=== PATIENT | male | born 1980 | race Hispanic/Latino ===

== ENCOUNTER 2016-06-15 18:16 | Emergency (ER) | payer SELFPAY ==
[2016-06-15] MEDS ORDERED: TYLENOL PO ONE (18:28)
--- NOTE | 2016-06-15 19:05 | XRay Report ---
FINAL REPORT PROCEDURE: XR CHEST ROUTINE 2V TECHNIQUE: Two views of the chest are obtained HISTORY: shortness of breath COMPARISON: No prior studies are available for comparison. FINDINGS: Alveolar opacity is seen in the right lower lobe of the lungs that is likely due to pneumonia. The heart is normal in size. No pneumothorax or pleural effusion is seen. IMPRESSION: There is likely right lower lobe pneumonia. Continued x-ray followup to document resolution is recommended.
[2016-06-15 19:17] LABS: Hematocrit 43.5 % (35.5-45.6); Hemoglobin 14.4 gm/dl (11.8-15.2); Mean Corpuscular HGB Conc 33 % (32-34); Mean Corpuscular Hemoglobin 31 pg (28-32); Mean Corpuscular Volume 93 fl (84-94); Platelet Count 256 K/mm3 (140-440); Red Blood Count 4.69 M/mm3 (3.65-5.03); Red Cell Distribution Width 12.8 % (13.2-15.2); White Blood Count 24.8 K/mm3 (4.5-11.0)
[2016-06-15 19:34] LABS: Anion Gap 20 mmol/L; Blood Urea Nitrogen 14 mg/dL (9-20); Calcium 8.9 mg/dL (8.4-10.2); Carbon Dioxide 25 mmol/L (22-30); Chloride 91.4 mmol/L (98-107); Glucose 165 mg/dL (75-100); Potassium 3.7 mmol/L (3.6-5.0); Sodium 133 mmol/L (137-145)
[2016-06-15 19:57] LABS: Basophils % (Manual) 0 % (0.0-1.8); Blastocytes % (Manual) 0 %
[2016-06-15 19:58] LABS: Diff Status Complete; Eosinophils % (Manual) 0 % (0.0-4.3); RBC Morphology Normal; Total Cells Counted Percent 0
[2016-06-15 21:45] VITALS: BP 122/68
--- NOTE | 2016-06-15 22:20 | Emergency Department Report ---
- General Chief Complaint: Upper Respiratory Infection Stated Complaint: COUGHING UP MUCUS/PAIN Time Seen by Provider: 06/15/16 20:45 Source: patient Mode of arrival: Ambulatory Limitations: No Limitations - History of Present Illness Initial Comments: This is a 35-year-old male that presents with cough, body aches, sore throat, shortness of breath, productive sputum production for the past week. Patient stated has recent traveling to [place] but stated has been having these symptoms before traveling. Patient is a positive smoker. Patient denies any numbness or tingling sensation extremities. Patient stated he has wheezing. Patient also states had nausea and vomiting last night. But denies any nausea vomiting this current time. Patient denies stiff neck pain, rhinorrhea. Patient denies taking anything [id number] for symptoms. Patient stated has been treating his fever with Tylenol [id number]. Patient denies any toxic or ill appearance. No signs of distress noted. MD Complaint: cough, sore throat -: Gradual, week(s) (1) Severity: moderate Severity scale (0 -10): 10 Quality: sharp, aching Consistency: constant Improves With: nothing Worsens With: activity (sob increases with activity) Associated Symptoms: fever, chills, cough, shortness of breath, nausea, vomiting. denies: diaphoresis, headache, rhinorrhea, nasal congestion, stiff neck, chest pain, abdominal pain, diarrhea, dysuria, rash, confusion, right sweats, weight loss, epistaxis, hoarseness, ear pain Treatments Prior to Arrival: none - Related Data Previous Rx's Medication Instructions Recorded Last Taken Type ALBUTEROL Inhaler [ProAir HFA 2 puff IH DAILY PRN #1 inhalation 06/15/16 Unknown Rx Inhaler] Doxycycline [Vibramycin CAP] 100 mg PO Q12HR 7 Days 06/15/16 Unknown Rx Levofloxacin [Levaquin TAB] 750 mg PO QDAY 5 Days 06/15/16 Unknown Rx Prednisone [predniSONE (Thomas) ER 40 mg PO QDAY 5 Days 06/15/16 Unknown Rx TAB] Allergies Allergy/AdvReac Type Severity Reaction Status Date / Time No Known Allergies Allergy Unverified 11/13/15 03:36 ED Review of Systems ROS: Stated complaint: COUGHING UP MUCUS/PAIN Other details as noted in HPI Constitutional: denies: chills, fever Eyes: denies: eye pain, eye discharge, vision change ENT: denies: ear pain, throat pain Respiratory: cough, shortness of breath, wheezing (bilateral lower lobes). denies: orthopnea, SOB at rest Cardiovascular: denies: chest pain, palpitations Endocrine: no symptoms reported Gastrointestinal: denies: abdominal pain, nausea, diarrhea Genitourinary: denies: urgency, dysuria Musculoskeletal: denies: back pain, joint swelling, arthralgia Skin: denies: rash, lesions Neurological: denies: headache, weakness, paresthesias Psychiatric: denies: anxiety, depression Hematological/Lymphatic: denies: easy bleeding, easy bruising ED Past Medical Hx - Past Medical History Previous Medical History?: No - Surgical History Past Surgical History?: No - Social History Smoking Status: Current Every Day Smoker Substance Use Type: Alcohol, Marijuana - Medications Home Medications: Home Medications Medication Instructions Recorded Confirmed Last Taken Type ALBUTEROL Inhaler [ProAir HFA 2 puff IH DAILY PRN #1 inhalation 06/15/16 Unknown Rx Inhaler] Doxycycline [Vibramycin CAP] 100 mg PO Q12HR 7 Days 06/15/16 Unknown Rx Levofloxacin [Levaquin TAB] 750 mg PO QDAY 5 Days 06/15/16 Unknown Rx Prednisone [predniSONE (Thomas) ER 40 mg PO QDAY 5 Days 06/15/16 Unknown Rx TAB] ED Physical Exam - General Limitations: No Limitations General appearance: alert, in no apparent distress - Head Head exam: Present: atraumatic, normocephalic - Eye Eye exam: Present: normal appearance, PERRL, EOMI - ENT ENT exam: Present: normal exam, normal orophraynx, mucous membranes moist, TM's normal bilaterally - Neck Neck exam: Present: normal inspection, full ROM. Absent: tenderness - Respiratory Respiratory exam: Present: normal lung sounds bilaterally, wheezes (bilateral lower lobes). Absent: respiratory distress, rales, rhonchi, stridor, chest wall tenderness, accessory muscle use, decreased breath sounds, prolonged expiratory - Expanded Respiratory Exam Expanded Location: Wheezes: Right, Left, Lower - Cardiovascular Cardiovascular Exam: Present: regular rate, normal rhythm. Absent: systolic murmur, diastolic murmur, rubs, gallop - GI/Abdominal GI/Abdominal exam: Present: soft, normal bowel sounds - Rectal Rectal exam: Present: deferred - Extremities Exam Extremities exam: Present: normal inspection, full ROM, normal capillary refill. Absent: tenderness - Back Exam Back exam: Present: normal inspection, full ROM. Absent: tenderness, CVA tenderness (R), CVA tenderness (L) - Neurological Exam Neurological exam: Present: alert, oriented X3, CN II-XII intact, normal gait - Psychiatric Psychiatric exam: Present: normal affect, normal mood - Skin Skin exam: Present: warm, dry, intact, normal color. Absent: rash ED Course Vital Signs 06/15/16 06/15/16 06/15/16 18:22 18:32 21:43 Temperature 100.7 F H 98.9 F Pulse Rate 96 H 96 H Respiratory 20 20 20 Rate Blood Pressure 115/78 Blood Pressure 122/68 [Left] O2 Sat by Pulse 96 98 Oximetry 06/15/16 21:45 Temperature Pulse Rate Respiratory 20 Rate Blood Pressure Blood Pressure [Left] O2 Sat by Pulse 98 Oximetry - Reevaluation(s) Reevaluation #1: 06/15/16 22:23 Dr. Rondon aware and seen patient. ED Medical Decision Making - Lab Data Result diagrams: 06/15/16 18:52 06/15/16 18:52 - Medical Decision Making Ed course: Is a 35-year-old male that presents with right lower lobe pneumonia 1- I discussed the case with Dr. Rondon. 2- CURB-65: 0 points. Low risk group: 0.6% 30-day mortality. Consider outpatient treatment. 3-x-ray of chest; there is likely right lower lobe pneumonia. Continue x-ray follow-up to document resolution is recommended. 4- patient received Levafloxacin 750 mg and doxycycline 100 mg in the ER. 5- I explained to the patient the x-ray findings of pneumonia. I instructed the patient to follow with her primary care doctor in 3-5 days. I also instructed the patient ever repeat chest x-ray for resolution recommended. 6- patient agreed to discharge plan. No further questions noted at this time. 7- patient discharged with doxycycline 100 mg and Levafloxacin 750 mg by mouth. 8- I instructed that to the patient that if symptoms worsen such as shortness of breath, chest pain, headache, difficulty breathing report back to emergency room. Critical care attestation.: If time is entered above; I have spent that time in minutes in the direct care of this critically ill patient, excluding procedure time. ED Disposition Clinical Impression: Pneumonia Qualifiers: Pneumonia type: due to unspecified organism Laterality: right Lung location: lower lobe of lung Qualified Code(s): J18.9 - Pneumonia, unspecified organism Disposition: DISCHARGED TO HOME OR SELFCARE Is pt being admited?: No Does the pt Need Aspirin: No Condition: Stable Instructions: Bacterial Pneumonia (ED), Community-acquired Pneumonia (ED) Additional Instructions: Report back to your primary care doctor in 3-5 days. Return to ER if symptoms worse such as difficulty breathing, shortness of breath , chest pain, numbness or tingling, or worsening symptoms. Follow-up with her primary care doctor for a repeat of x-ray devante. Finish full course of antibiotics as prescribed. Prescriptions: ALBUTEROL Inhaler [ProAir HFA Inhaler] 2 puff IH DAILY PRN #1 inhalation PRN Reason: Shortness Of Breath Doxycycline [Vibramycin CAP] 100 mg PO Q12HR 7 Days Levofloxacin [Levaquin TAB] 750 mg PO QDAY 5 Days Prednisone [predniSONE (Thomas) ER TAB] 40 mg PO QDAY 5 Days Referrals: PRIMARY CAREMD [Primary Care Provider] - 3-5 Days [facility] [Outside] - 3-5 Days [facility] [Outside] - 3-5 Days AYDEN BUSCH MD [Staff Physician] - 3-5 Days Forms: Work/School Release Form(ED)
[2016-06-15] MEDS ORDERED: VIBRAMYCIN PO ONE (22:29)
[2016-06-15] MEDS ORDERED: LEVAQUIN PO ONE (22:30)
[2016-06-15] MEDS ORDERED: DUONEB 0.5 MG-3 MG/3 ML SOLN IH SCH (23:00)
== END 2016-06-15 23:28 | disposition home or self-care (01) ==
LOC: ED 18:16
DX: J18.9 Pneumonia, unspecified organism (principal); F17.200 Nicotine dependence, unspecified, uncomplicated; F12.10 Cannabis abuse, uncomplicated
CPT/HCPCS: 36415; 71020; 80048; 85007; 85025; 96372; 99284; J2920

== ENCOUNTER 2016-06-19 22:40 | Emergency (ER) | payer OTHER ==
[2016-06-20] MEDS ORDERED: NORCO 5/325 PO ONE (01:20)
[2016-06-20] MEDS ORDERED: TORADOL IM ONE (01:20)
--- NOTE | 2016-06-20 01:40 | Emergency Department Report ---
HPI - General Chief Complaint: Extremity Injury, Lower Time Seen by Provider: 06/20/16 00:12 - HPI HPI: 35-year-old male presents today complaining of right knee pain. Patient states that he was trying to kill a snake when he jumped high and landed the wrong way on his right foot. Patient states that he felt a pop and has been in excruciating pain since. Describes his pain as 10 out of 10 throbbing pain. Denies history of injury or surgery to the area. Denies numbness, weakness, paresthesias. Denies fever, chills, nausea, vomiting, chest pain, shortness of breath, abdominal pain. Patient states he was recently diagnosed with pneumonia and is currently taking antibiotics. ED Past Medical Hx - Past Medical History Previous Medical History?: No - Surgical History Past Surgical History?: No - Social History Smoking Status: Former Smoker Substance Use Type: None - Medications Home Medications: Home Medications Medication Instructions Recorded Confirmed Last Taken Type ALBUTEROL Inhaler [ProAir HFA 2 puff IH DAILY PRN #1 inhalation 06/15/1606/20/16 Rx Inhaler] Doxycycline [Vibramycin CAP] 100 mg PO Q12HR 7 Days 06/15/16 06/20/16 06/20/16 Rx Levofloxacin [Levaquin TAB] 750 mg PO QDAY 5 Days 06/15/16 06/20/16 06/20/16 Rx Prednisone [predniSONE (Thomas) ER 40 mg PO QDAY 5 Days 06/15/16 06/20/16 Rx TAB] Cyclobenzaprine [Flexeril] 10 mg PO TID PRN #20 tablet 06/20/16 Unknown Rx HYDROcodone/APAP 10-325 [Isom 1 each PO Q6HR PRN #30 tablet 06/20/16 Unknown Rx 10/325] ED Review of Systems ROS: Stated complaint: FOOT INJURY Other details as noted in HPI Constitutional: denies: chills, fever, malaise Eyes: denies: eye pain ENT: denies: ear pain, throat pain, congestion Respiratory: cough. denies: shortness of breath, wheezing Cardiovascular: denies: chest pain, palpitations Endocrine: no symptoms reported Gastrointestinal: denies: abdominal pain, nausea, vomiting Musculoskeletal: joint swelling, arthralgia Neurological: denies: headache, weakness, numbness, paresthesias Physical Exam - Physical Exam Vital Signs: Vital Signs 06/19/16 23:54 Temperature 99.8 F H Pulse Rate 63 Respiratory 20 Rate Blood Pressure 126/87 O2 Sat by Pulse 99 Oximetry Physical Exam: GENERAL: The patient is well-developed and well-nourished. Patient is in NAD. HEAD: Normocephalic. Atraumatic. CHEST/LUNGS: Clear to auscultation throughout. No wheezing. HEART/CARDIOVASCULAR: Regular rate and rhythm. No murmurs, rubs or gallops. ABDOMEN: Abdomen is soft, nontender. Bowel sounds normoactive. No guarding or rebound tenderness. RIGHT KNEE: Tenderness to palpation and swelling noted over anterior, medial and lateral aspect of right knee. Limited ROM due to pain. Normal sensation. Peripheral pulses intact. Capillary refill less than 2 seconds. NEURO: Alert and oriented x 3. Unable to ambulate secondary to pain. ED Course Vital Signs 06/19/16 23:54 Temperature 99.8 F H Pulse Rate 63 Respiratory 20 Rate Blood Pressure 126/87 O2 Sat by Pulse 99 Oximetry - Reevaluation(s) Reevaluation #1: 06/20/16 04:[address] Galicia. He recommended patient be put in a splint or a knee immobilizer. Patient is to be sent home on flexeril and pain medication and he needs to follow up with Dr. Galicia wednesday morning. ED Medical Decision Making - Lab Data Vital Signs 06/19/16 06/20/16 23:54 03:10 Temperature 99.8 F H Pulse Rate 63 70 Respiratory 20 18 Rate Blood Pressure 126/87 Blood Pressure 131/74 [Left] O2 Sat by Pulse 99 100 Oximetry - Radiology Data Radiology results: report reviewed PROCEDURE: XR KNEE 3V RT TECHNIQUE: Right knee radiographs, AP, lateral and sunrise views. CPT 20172 HISTORY: injury, pain and swelling OF THE RIGHT KNEE COMPARISON: No prior studies are available for comparison. FINDINGS: Fracture (s) and/or Dislocation(s): There is a comminuted intra-articular fracture of the medial tibial plateau. Fracture is depressed approximately 9.5 millimeters. There is a nondisplaced fracture of the proximal fibula. The femur and patella are intact. Alignment: Normal . Joint space(s): There is no joint dislocation. Soft tissues: There is soft tissue swelling and a joint effusion. Bone mineralization: Normal. Foreign bodies: None. IMPRESSION: There is a comminuted intra-articular fracture of the medial tibial plateau. Fracture is depressed approximately 9.5 millimeters.. There is a nondisplaced fracture of the proximal fibula. There is no joint dislocation. - Medical Decision Making 35-year-old male presents today with right knee pain post injury. His x-ray results reveal a comminuted intra-articular fracture of the medial tibial plateau, fracture is depressed approximately 9.5 mm. There is also a nondisplaced fracture of the proximal fibula. Consulted with Dr. Walker. Patient has been put in a posterior knee splint. He will be sent home on [facility] and Isom and is recommended to follow up with Dr. Walker on Wednesday. Patient is in no acute distress at this time. He will be discharged home and is encouraged to return to the emergency room for any worsening symptoms. Critical care attestation.: If time is entered above; I have spent that time in minutes in the direct care of this critically ill patient, excluding procedure time. ED Disposition Clinical Impression: Tibial plateau fracture Qualifiers: Encounter type: initial encounter Fracture type: closed Laterality: right Qualified Code(s): S82.141A - Displaced bicondylar fracture of right tibia, initial encounter for closed fracture Fracture of proximal end of fibula Qualifiers: Encounter type: initial encounter Fracture type: closed Fracture morphology: unspecified fracture morphology Laterality: right Qualified Code(s): S82.831A - Other fracture of upper and lower end of right fibula, initial encounter for closed fracture Disposition: DISCHARGED TO HOME OR SELFCARE Is pt being admited?: No Does the pt Need Aspirin: No Condition: Stable Instructions: Leg Fracture (ED) Additional Instructions: Follow-up with orthopedic on Wednesday. Return to the emergency department is symptoms worsen. Prescriptions: Cyclobenzaprine [Flexeril] 10 mg PO TID PRN #20 tablet PRN Reason: Muscle Spasm HYDROcodone/APAP 10-325 [Isom 10/325] 1 each PO Q6HR PRN #30 tablet PRN Reason: Pain Referrals: PRIMARY MD MEAGAN [Primary Care Provider] - 3-5 Days AYANA GALICIA MD [Staff Physician] - 3-5 Days Forms: Work/School Release Form(ED) Time of Disposition: 05:10
--- NOTE | 2016-06-20 01:44 | XRay Report ---
FINAL REPORT PROCEDURE: XR KNEE 3V RT TECHNIQUE: Right knee radiographs, AP, lateral and sunrise views. CPT 87616 HISTORY: injury, pain and swelling OF THE RIGHT KNEE COMPARISON: No prior studies are available for comparison. FINDINGS: Fracture (s) and/or Dislocation(s): There is a comminuted intra-articular fracture of the medial tibial plateau. Fracture is depressed approximately 9.5 millimeters.. There is a nondisplaced fracture of the proximal fibula. The femur and patella are intact. Alignment: Normal . Joint space(s): There is no joint dislocation.. Soft tissues: There is soft tissue swelling and a joint effusion.. Bone mineralization: Normal . Foreign bodies: None . IMPRESSION: There is a comminuted intra-articular fracture of the medial tibial plateau. Fracture is depressed approximately 9.5 millimeters.. There is a nondisplaced fracture of the proximal fibula. There is no joint dislocation.. .
[2016-06-20 03:11] VITALS: BP 131/74
== END 2016-06-20 05:26 | disposition home or self-care (01) ==
LOC: ED 22:40
DX: S82.141A Displaced bicondylar fracture of right tibia, initial encounter for closed fracture (principal); S82.831A Other fracture of upper and lower end of right fibula, initial encounter for closed fracture; Z87.891 Personal history of nicotine dependence; X58.XXXA Exposure to other specified factors, initial encounter; Y93.39 Activity, other involving climbing, rappelling and jumping off; Y99.8 Other external cause status; Y92.89 Other specified places as the place of occurrence of the external cause
CPT/HCPCS: 29505; 73562; 96372; 99283; J1885